=== PATIENT | male | born 1990 | race Hispanic/Latino ===

== ENCOUNTER 2017-08-14 07:41 | Emergency (ER) | payer SELFPAY ==
[2017-08-14] MEDS ORDERED: CEPHALEXIN 500MG CAP (ER DISP) PO ONE (07:53)
[2017-08-14] MEDS ORDERED: KETOROLAC TROMETHAMINE INJ 60 MG/2 ML VIAL IM ONE (07:53)
[2017-08-14 07:55] VITALS: TEMP 96.9; O2SAT 98
--- NOTE | 2017-08-14 07:56 | ED.PDOC ---
History of Present Illness - General Chief Complaint: Upper Extremity Injury Stated Complaint: R 4th finger injury Time Seen by Provider: 08/14/17 07:52 Source: patient, RN notes reviewed, Vital Signs reviewed, other - co worker Exam Limitations: no limitations - History of Present Illness Pain - Upper Extremity: moderate: Hand, right Method of Injury: direct blow Improving Factors: immobilization Worsening Factors: movement Allergies/Adverse Reactions: Allergies NO KNOWN ALLERGY Allergy (Verified 08/14/17 07:52) Home Medications: Ambulatory Orders Cephalexin Monohydrate [Keflex] 1,000 mg PO BID 10 Days #40 cap 08/14/17 NK [NK] 08/14/17 Tramadol HCl [Ultram] 50 mg PO Q6H PRN #20 tab 08/14/17 Review of Systems - Review of Systems Constitutional: States: no symptoms reported EENTM: States: no symptoms reported Respiratory: States: no symptoms reported Cardiology: States: no symptoms reported Gastrointestinal/Abdominal: States: no symptoms reported Genitourinary: States: no symptoms reported Musculoskeletal: States: other - finger pain Skin: States: other - laceration, crush injury Neurological: States: no symptoms reported Family Medical History - Family History Father Living Status: Still Living Hx Family Diabetes: Yes Physical Exam - Physical Exam General Appearance: Alert, No apparent distress Eyes, Ears, Nose, Throat Exam: PERRL/EOMI Neck: non-tender, full range of motion Cardiovascular/Respiratory: regular rate, rhythm Abdominal Exam: non-tender Back Exam: normal inspection, no CVA tenderness Shoulder Exam: normal inspection, non-tender, no evidence of injury, normal ROM Elbow/Forearm Exam: normal inspection, non-tender, no evidence of injury, normal ROM Wrist Exam: normal inspection, non-tender, no evidence of injury, normal ROM Hand Exam: limited ROM - crush injury of distal 4th digit with bleeding and skin avulsion, cap refill intact, tenderness to palpation of DIP Progress - Progress Progress: 08/14/17 08:25 Xray shows distal tuff fracture. will place on abx and soak digit for wound care. 08/14/17 08:26 tdap utd 08/14/17 08:38 digital block performed on the right 4th digit for pain control using lidocaine. Performed by myself after verbal consent. Pt tolerated well, pain controlled 06/27/18 09:04 Finger fracture splinted by nursing staff under my direct supervision. aluminum finger splint for tuff fracture. normal n/v exam after application Procedures - Laceration/Wound Repair Right Distal Finger Wound's Depth, Shape: irregular, stellate Wound Explored: clean Irrigated w/ Saline (cc's): 400 Betadine Prep?: Yes Anesthesia: 1% Lidocaine Volume Anesthetic (cc's): 1 Wound Debrided: minimal Wound Repaired With: sutures Suture Size/Type: 5:0, nylon - 5 simple inturrupted and 1 horizontal matress suture Layer Closure?: No Sterile Dressing Applied?: Yes Splint Applied?: Yes - finger splint applied for fracture not laceration Departure - Departure Clinical Impression: Crush injury Laceration of finger, right, complicated Qualifiers: Encounter type: initial encounter Qualified Code(s): S61.411A - Laceration without foreign body of right hand, initial encounter Finger fracture, right Qualifiers: Encounter type: initial encounter Finger: ring finger Fracture type: open Phalanx: distal Fracture alignment: displaced Qualified Code(s): S62.634B - Displaced fracture of distal phalanx of right ring finger, initial encounter for open fracture Time of Disposition: 09:08 Disposition: Discharge to Home or Self Care Condition: Excellent Departure Forms: ED Discharge - Pt. Copy, Patient Portal Self Enrollment Instructions: DI for Arm Pain, DI for Fracture, Laceration Repair Diet: resume usual diet Activity: other - no activity with right 4th digit Referrals: Remi Harrison MD [Active Staff] - 1-5 Days (open distal finger fracture, s/p irrigation and repair) Prescriptions: Cephalexin Monohydrate [Keflex] 1,000 mg PO BID 10 Days #40 cap Tramadol HCl [Ultram] 50 mg PO Q6H PRN #20 tab PRN Reason: Pain Home Medications: Ambulatory Orders Cephalexin Monohydrate [Keflex] 1,000 mg PO BID 10 Days #40 cap 08/14/17 NK [NK] 08/14/17 Tramadol HCl [Ultram] 50 mg PO Q6H PRN #20 tab 08/14/17 Additional Instructions: Por Favor, limpia dos veces al greta con jabon. Secalo y kalen neosporina. Replace el hueso. Regresa si hay problema. Sigue con el Medico Hay para reevaluacion.
[2017-08-14] MEDS ORDERED: CHLORHEXIDINE GLUCONATE 4 % 15 ML UD TOP ONE (08:07)
[2017-08-14] MEDS ORDERED: CEPHALEXIN MONOHYDRATE 500 MG CAP ONE (08:08)
[2017-08-14] MEDS ORDERED: CEPHALEXIN MONOHYDRATE 500 MG CAP PO ONE (08:14)
[2017-08-14] MEDS ORDERED: LIDOCAINE 1% 50 ML VIAL INJ ONE (08:29)
--- NOTE | 2017-08-14 08:43 | RAD ---
3 views right fourth finger. Indication: trauma Comparison: None. Impression: Mildly comminuted fracture of the radial margin of the tuft of the fourth distal phalanx noted. 3 mm volar displacement of the distal fracture fragment noted. Associated soft tissue swelling present. Electronically signed by: Jl Thomas MD 08/14/2017 8:42 AM CDT
[2017-08-14] MEDS ORDERED: NEOMYCIN-BACITRACIN-POLYMYXIN 0.9 GM UD TOP ONE (09:09)
[2017-08-14 09:38] VITALS: BP 137/91
== END 2017-08-14 09:34 | disposition home or self-care (01) ==
LOC: ER 07:41
DX: S67.194A Crushing injury of right ring finger, initial encounter (principal); S61.214A Laceration without foreign body of right ring finger without damage to nail, initial encounter; S62.634B Displaced fracture of distal phalanx of right ring finger, initial encounter for open fracture; X58.XXXA Exposure to other specified factors, initial encounter; Y92.9 Unspecified place or not applicable
CPT/HCPCS: 36416; 73140; 82948; J1885